=== PATIENT | female | born 1995 | race Caucasian/White ===

== ENCOUNTER → 2021-07-20 | Outpatient (CLI) | payer OTHER | LOC: EMI 07-13 13:00 | DX: R51.9 Headache, unspecified (principal); R41.89 Other symptoms and signs involving cognitive functions and awareness; R46.89 Other symptoms and signs involving appearance and behavior; Z86.79 Personal history of other diseases of the circulatory system; R94.02 Abnormal brain scan | CPT/HCPCS: 70551 ==